=== PATIENT | male | born 1980 | race Caucasian/White ===

== ENCOUNTER 2021-04-11 11:45 | Emergency (ER) | payer SELFPAY ==
[2021-04-11 12:07] VITALS: BP 141/85; PULSE 99; RESP 16; TEMP 36.9; O2SAT 95; BMI 30.7
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
[2021-04-11] MEDS: tetanus-dipt-pertussis 0.5 mL SDV IM (13:56)
[2021-04-11] MEDS: lidocaine 1% INJ 20 mL INTRADERMA (14:00)
== END 2021-04-11 14:02 | disposition home or self-care (01) ==
PROVIDERS: Emergency Provider Physician Assistant
DX: S81.811A Laceration without foreign body, right lower leg, initial encounter (principal); W26.8XXA Contact with other sharp object(s), not elsewhere classified, initial encounter; Z23 Encounter for immunization
CPT/HCPCS: 12001; 12002; 90471; 90715; 99283